=== PATIENT | female | born 1955 | race African-American/Black ===

== ENCOUNTER 2019-11-22 08:36 | Observation (INO) | payer MEDICARE, OTHER ==
[~2019-11-22 08:36] MED LIST: ACETAMINOPHEN 325 MG TABLET ONE; ACETAMINOPHEN 325 MG TABLET PO PRN; CEFAZOLIN SODIUM 2 GM in DEXTROSE 5%-WATER 100 ML IV PRN; CELECOXIB 200 MG CAPSULE ONE; CELECOXIB 200 MG CAPSULE PO PRN; GABAPENTIN 100 MG CAPSULE ONE; GABAPENTIN 100 MG CAPSULE PO PRN; LACTATED RINGERS 1000 ML IV PRN; ONDANSETRON HCL INJ/PF 4 MG/2 ML SDV IV PRN; ONDANSETRON HCL INJ/PF 4 MG/2 ML SDV ONE; OXYCODONE HCL SR 10 MG TABLET PO ONE; OXYCODONE HCL SR 10 MG TABLET PO PRN; RINGERS SOLUTION,LACTATED 1,000 ML IV PRN; SCOPOLAMINE HYDROBROMIDE 1.5 MG PATCH.TD72 ONE; SCOPOLAMINE HYDROBROMIDE 1.5 MG PATCH.TD72 TD PRN; TRAMADOL HCL 50 MG TABLET ONE; TRAMADOL HCL 50 MG TABLET PO PRN; TRANEXAMIC ACID INJ/PF 1,000 MG/10 ML SDV IV PRN; VANCOMYCIN HCL 1,000 MG in DEXTROSE 5%-WATER 250 ML IV PRN
[2019-11-22] MEDS ORDERED: VANCOMYCIN HCL INJ 1000 MG VIAL ONE (11:57)
[2019-11-22] MEDS ORDERED: KETOROLAC TROMETHAMINE INJ/PF 30 MG/1 ML SDV ONE (11:57)
[2019-11-22] MEDS ORDERED: BUPIVACAINE HCL 0.25 % INJ/PF (2.5 MG/1 ML) 30 ML VIAL ONE (11:57)
[2019-11-22] MEDS ORDERED: LIDOCAINE 1% INJ-PF (10 MG/ML) 30 ML SDV ONE (11:57)
[2019-11-22] MEDS ORDERED: BACITRACIN INJ 50,000 UNIT VIAL ONE (11:58)
[2019-11-22] MEDS ORDERED: GENTAMICIN SULFATE INJ 80 MG/2 ML VIAL ONE (11:58)
[2019-11-22] MEDS ORDERED: MIDAZOLAM 2 MG/2 ML INJ ONE (12:07)
[2019-11-22] MEDS ORDERED: PROPOFOL INJ 200 MG/20 ML VIAL IV ONE ×2 (12:07→14:08)
[2019-11-22] MEDS ORDERED: MORPHINE SULFATE 10 MG/ML INJ IV PRN ×2 (12:51→15:49)
[2019-11-22] MEDS ORDERED: DIPHENHYDRAMINE HCL 50 MG/ML VIAL IV PRN (12:51)
[2019-11-22] MEDS ORDERED: MEPERIDINE HCL/PF INJ 25 MG/1 ML DISP.SYRIN IV PRN (12:51)
[2019-11-22] MEDS ORDERED: PROMETHAZINE HCL INJ 25 MG/1 ML VIAL IV PRN ×2 (12:51)
[2019-11-22] MEDS ORDERED: FENTANYL CITRATE INJ/PF 100 MCG/2 ML AMPUL IV PRN ×3 (12:51)
[2019-11-22] MEDS ORDERED: LIDOCAINE 2% INJ (20 MG/ML) 20 ML MDV ONE (14:41)
[2019-11-22] MEDS ORDERED: LIDOCAINE 2%/EPINEPHRINE INJ 20 ML VIAL ONE (14:41)
[2019-11-22] MEDS ORDERED: ROPIVACAINE HCL 0.5% INJ/PF (5 MG/1 ML) 30 ML SDV ONE (14:41)
--- NOTE | 2019-11-22 15:06 | Operative Report ---
Operative Report DATE OF SURGERY: 11/22/19 PREOPERATIVE DIAGNOSIS: Severe primary right knee arthritis POSTOPERATIVE DIAGNOSIS: Severe primary right knee arthritis OPERATION: Right total knee arthroplasty SURGEON: ERIC JENKINS JR ANESTHESIA: Spinal COMPLICATIONS: None ESTIMATED BLOOD LOSS: 20 cc PROCEDURE: Components: Ricardo persona total knee: 6 PS femur, F x 10 tibia, and a 32 patella BRIEF HISTORY: 63year old male/female with severe degenerative arthritis of right knee, which has failed conservative treatment and has elected for a total knee arthroplasty. They had been having severe debilitating pain that was preventing her from performing daily activities including ambulating for short distances, getting in and out of there car, going up and down stairs, and overall decreasing their quality of life due to their avoidance of activity because of pain. That failed conservative management including [id number] pain medication such as Tylenol and ibuprofen. X-rays demonstrated severe ggyq-vq-tulz osteoarthritis with subchondral sclerosis osteophyte formation and joint space narrowing. Risks include but are not limited to bleeding, infection, anesthesia, , injury to nerve or vessel, pain, scar, leg length inequality, dislocation, future surgery, and blood clots. Patient read through the pre-op counseling form and signed and solicited for surgery on their right knee. OPERATIVE PROCEDURE: Patient was brought to the operating room on and underwent spinal anesthesia. After proper anesthesia was obtained, patient was positioned, padded, prepped, and draped in the usual sterile fashion on the operating room table. 2 grams of Ancef and 1 g of vancomycin were given. Appropriate time out was performed. Anterior incision and medial-parapatella approach was performed. Severe degenerative arthritis was noted. Osteophytes were removed from the femur and tibia, and the remainder of the ACL and PCL were removed. The proximal tibia was then prepared and cut perpendicular to the tibial shaft axis and measured to a F tibia. The distal femur was drilled, the canal was irrigated and the distal femoral guide was placed. The distal femur was cut to 5 degrees of varus. The knee was brought into extension and found to be slightly tight with the evaluation of the 10 block. We placed her back into flexion and cut 2 more millimeters. The tensor was placed in extension and the extension gap was balanced with releases until the goniometer on the tensor measured to 0. The patella AP aspect was measured to 25 mm and patella was cut parallel to the anterior patella surface. A 32 mm button was placed medially and superiorly as possible and the patella-button construct again measured 25 mm. The tensor was placed in flexion and the femur was sized to 6. The AP and for block was placed and anterior-posterior and chamfer cuts were made. Posterior osteophytes were removed and the was evaluated with a 10 block and found to be appropriate. A femoral trial was placed and then the femoral notch cuts were made. A trial baseplate was placed with a 10 mm polyethylene and taken through a range of motion. This was found to have excellent fit in both extension and flexion, no position of excessive ligamentous restraint or laxity, and good patellar tracking. The tibial baseplate was marked in position and subsequently pinned, drilled, and punched. Cement fixation places made on the femur and tibia, and pulsatile irrigation of the lili and soft tissue surfaces. The lili surfaces were cleaned and dried, and cementation of the femur, tibia, and patella. Periarticular injection with Marcaine and Toradol was performed. The knee was irrigated with antibiotic solution, betadine solution, and antibiotic solution. A gram of Vancomycin was placed intra-articularly. The extensor mechanism was closed with number 2 Stratofix, the subcutaneous tissue closed with 2-0 Vicryl and the skin closed with 3-0 running monocryl. A silver dressing was applied. All needle sponge and instrument counts were correct. Patient was awakened from sedation anesthesia and taken to recovery room in good condition. Eric Jenkins DO
[2019-11-22] MEDS: ATROPINE SULFATE INJ 1 MG/10 ML DISP.SYRIN IV ONE ×2 (15:10→15:12)
[2019-11-22] MEDS ORDERED: DEXAMETHASONE SOD PHOS INJ 10 MG/1 ML VIAL ONE (15:42)
[2019-11-22] MEDS ORDERED: TRANEXAMIC ACID INJ/PF 1,000 MG/10 ML SDV ONE (15:42)
[2019-11-22] MEDS ORDERED: OXYCODONE HCL IR 5 MG TABLET PO PRN ×2 (15:48→15:49)
[2019-11-22] MEDS ORDERED: TRAMADOL HCL 50 MG TABLET PO PRN (15:50)
[2019-11-22] MEDS ORDERED: PANTOPRAZOLE SODIUM 20 MG TABLET.DR PO PRN (15:53)
[2019-11-22] MEDS ORDERED: DIPHENHYDRAMINE HCL 25 MG CAPSULE PO PRN (15:56)
[2019-11-22] MEDS ORDERED: ZOLPIDEM TARTRATE 5 MG TABLET PO PRN (15:57)
[2019-11-22] MEDS ORDERED: DOCUSATE SODIUM 100 MG CAPSULE PO PRN (16:00)
[2019-11-22] MEDS ORDERED: NORMAL SALINE 1000 ML 1,000 ML IV PRN (16:01)
[2019-11-22] MEDS ORDERED: ONDANSETRON HCL 8 MG TABLET PO PRN (16:02)
--- NOTE | 2019-11-22 16:26 | RADIOLOGY REPORT (SQ) ---
EXAM DESCRIPTION: KNEE RIGHT 2 VIEWS COMPLETED DATE/TIME: 11/22/2019 4:03 pm REASON FOR STUDY: POST OP M17.11 UNILATERAL PRIMARY OSTEOARTHRITIS, RIGHT KNEE COMPARISON: 08/08/2019. NUMBER OF VIEWS: Two view(s). TECHNIQUE: Digital radiographic images of the right knee post-procedure. LIMITATIONS: None. FINDINGS: BONES: No worrisome or unexpected findings post-procedure. DEVICE: Total knee arthroplasty SOFT TISSUES: No worrisome findings. Expected postoperative soft tissue changes. IMPRESSION: SATISFACTORY POSTOPERATIVE RIGHT KNEE. TECHNICAL DOCUMENTATION: JOB ID: [id number] [employer]- All Rights Reserved Reading location - IP/workstation name: [email or web address]
[2019-11-22] MEDS ORDERED: TRAMADOL HCL 50 MG TABLET PO SCH (18:00)
--- NOTE | 2019-11-22 18:05 | PDOC CONSULTATION ---
Consultation Consult Date: 11/22/19 Attending physician:: KIRILL JENKINS JR Provider Consulted: JOSE PLATT Consult reason:: bradycardia History of Present Illness Patient complains of: bradycardia History of Present Illness: JASMINE RODRIGUEZ is a 63 year old female who has history of hypertension that appears to be controlled. She also has history of morbid obesity status post gastric sleeve surgery last year. She is not a smoker or drinker. She does not use illicit drugs. She has dyslipidemia and GERD as well. She says that she was tested for sleep apnea last year and was negative. Was admitted for right knee severe arthritis and underwent total right knee arthroplasty today. Postop she developed severe bradycardia rate in the high 20s. She received 2 doses of atropine. Apparently she received tramadol and oxycodone prior to the surgery. Plain heart rate is stable in the mid 50s and she is asymptomatic. Blood pressure can continued to be stable throughout postop time period. Past Medical History Cardiac Medical History: Reports: Hyperlipidema, Hypertension Denies: Atrial Fibrillation, Congestive Heart Failure, Coronary Artery Dise ase, Myocardial Infarction, Peripheral Vascular Disease, Heart Murmur Pulmonary Medical History: Denies: Asthma, Bronchitis, Chronic Obstructive Pulmonary Disease (COPD), Sl eep Apnea Neurological Medical History: Denies: Seizures Endocrine Medical History: Denies: Hyperthyroidism, Hypothyroidism Renal/ Medical History: Denies: End Stage Renal Disease GI Medical History: Reports: Gastroesophageal Reflux Disease Denies: Crohn's Disease, Hiatal Hernia Musculoskeltal Medical History: Reports: Arthritis Denies: Fibromyalgia Psychiatric Medical History: Denies: Bipolar Disorder, Depression, Post Traumatic Stress Disorder Hematology: Denies: Anemia, Sickle Cell Disease Past Surgical History Past Surgical History: Reports: Cholecystectomy, Gastric Bypass Surgery Denies: Amputation, Appendectomy, Section, Colostomy, Coronary Artery Bypass Graft, Herniorrhaphy, Hysterectomy, Mastectomy, Pacemaker, Tonsillectomy, Tubal Ligation Social History Smoking Status: Never Smoker Hx Recreational Drug Use: No Hx Prescription Drug Abuse: No - Advance Directive Resuscitation Status: Full Code Family History Family History: COPD Parental Family History Reviewed: Yes Children Family History Reviewed: Yes Sibling(s) Family History Reviewed.: Yes Medication/Allergy Home Medications: Calcium Carbonate [Caltrate 600 mg Tablet] 600 mg PO DAILY 11/07/19 Diclofenac Sodium [Voltaren 50 mg Tablet.dr] 50 mg PO DAILY 11/07/19 Hydrochlorothiazide [Hydrodiuril 25 mg Tablet] 25 mg PO DAILY 11/07/19 Multivitamin [Multiple Vitamins] 1 tab PO DAILY 11/07/19 Omeprazole 40 mg PO DAILY 11/07/19 Polyethylene Glycol 3350 [Miralax Powder 17 gm/Packet] 17 gm PO DAILY 11/07/19 Simvastatin 40 mg PO QHS 11/07/19 Tramadol HCl [Ultram 50 mg Tablet] 50 mg PO BID 11/07/19 Allergies/Adverse Reactions: No Known Allergies Allergy (Verified 11/22/19 09:31) Review of Systems All systems: reviewed and no additional remarkable complaints except as stated Physical Exam Vital Signs: Temp Pulse Resp BP Pulse Ox 97.9 F 49 L 8 L 129/65 H 93 11/22/19 17:00 11/22/19 17:00 11/22/19 17:00 11/22/19 17:00 11/22/19 17:00 Intake & Output 11/21/19 11/22/19 11/23/19 06:59 06:59 06:59 Intake Total 4200 Output Total 3025 Balance 1175 Weight 211 lb 0.07 oz Exam: Patient is no acute distress Alert oriented to time place person No anxiety or depression Head: atraumatic normocephalic Pupils: are equal reactive Neck: is supple and trachea is central no lymphadenopathy No pharyngeal erythema or exudates Heart: Regular rate and rhythm, no peripheral edema Lungs: clear to auscul, no respiratory distress Abdomen: nontender nondistended Neurological exam: unremarkable Musculoskeletal: Right knee is postop covered with dressing that is dry and clean No suicidal or homicidal ideation Results Laboratory Results: 11/22/19 09:20 11/22/19 09:20 Potassium 3.8 Impressions: Knee X-Ray 11/22/19 00:00 IMPRESSION: SATISFACTORY POSTOPERATIVE RIGHT KNEE. Assessment and Plan - Diagnosis (1) Bradycardia Is this a current diagnosis for this admission?: Yes Plan: Most likely from anesthesia effects. Observe on telemetry. Currently rate in the high 50s and she is asymptomatic. Will check TSH and electrolytes and get echocardiogram. (2) Hypertension Is this a current diagnosis for this admission?: Yes Plan: resume HCTZ (3) Arthritis of right knee Is this a current diagnosis for this admission?: Yes Plan: Status post right total knee arthroplasty (4) Dyslipidemia Is this a current diagnosis for this admission?: Yes Plan: Continue simvastatin
--- NOTE | 2019-11-22 18:22 | EKG REPORT ---
SEVERITY:- NORMAL ECG - SINUS RHYTHM : Confirmed by: Truman Perry MD 22-Nov-2019 18:21:58
[2019-11-22 19:21] LABS: ANION GAP 6 (5-19); BLOOD UREA NITROGEN 20 mg/dL (7-20); CALCIUM 9.7 mg/dL (8.4-10.2); CARBON DIOXIDE 33 mmol/L (22-30); CHLORIDE 99 mmol/L (98-107); GLUCOSE 95 mg/dL (75-110); POTASSIUM 4.5 mmol/L (3.6-5.0)
[2019-11-22] MEDS: GABAPENTIN 100 MG CAPSULE PO SCH (20:24)
[2019-11-22] MEDS: ACETAMINOPHEN 325 MG TABLET PO SCH (21:51)
[2019-11-22] MEDS: CEFAZOLIN SODIUM 2 GM in DEXTROSE 5%-WATER 100 ML IV SCH (21:52)
[2019-11-22] MEDS: KETOROLAC TROMETHAMINE INJ/PF 30 MG/1 ML SDV IV SCH (21:52)
[2019-11-22] MEDS ORDERED: SIMVASTATIN 40 MG TABLET PO SCH (22:00)
--- NOTE | 2019-11-23 05:38 | PDOC PROGRESS REPORT ---
Subjective Progress Note for:: 11/23/19 Subjective:: The patient is doing well this AM. Pain is present but not out of proportion and well controlled on their current medications. There are no new symptoms or overnight events. Overall they are felling well without complaints. They deny chest pain, shortness of breath or motor or sensory loss. Reason For Visit: M17.11 UNILATERAL PRIMARY OSTEOARTHRITIS, RIGHT KN Physical Exam Vital Signs: Temp Pulse Resp BP Pulse Ox 98.3 F 54 L 16 116/73 97 11/23/19 00:00 11/23/19 02:00 11/23/19 00:00 11/23/19 00:00 11/23/19 00:00 Intake & Output 11/21/19 11/22/19 11/23/19 06:59 06:59 06:59 Intake Total 4800 Output Total 3025 Balance 1775 Weight 96.3 kg Physical Exam: General appearance: PRESENT: no acute distress, cooperative, well-nourished Head exam: PRESENT: atraumatic, normocephalic Eye exam: PRESENT: EOMI Ear exam: PRESENT: normal external ear exam Mouth exam: PRESENT: neck supple Neck exam: ABSENT: tracheal deviation Respiratory exam: PRESENT: symmetrical, unlabored. ABSENT: accessory muscle use, wheezes Pulses: PRESENT: normal radial pulses, normal dorsalis pedis pulse Vascular exam: PRESENT: normal capillary refill GI/Abdominal exam: ABSENT: distended, firm Extremities exam: PRESENT: full ROM of bilateral shoulders, elbows wrists, knees, hips and ankles without pain Musculoskeletal exam: PRESENT: full ROM, normal inspection of all 4 extremities aside from that noted below. Neurological exam: PRESENT: alert, awake, oriented to person, oriented to place, oriented to time Psychiatric exam: PRESENT: appropriate affect. ABSENT: agitated Focused psych exam: ABSENT: catatonic Skin exam: PRESENT: intact. ABSENT: dry All as above aside from that noted in the HPI and the following: Right lower extremity -Pulses 2+ distally -Compartments soft -Wound clean dry and intact no drainage, appropriate appearance for postop day 1 -Sensation grossly intact to L3-4-5 S1 -Motor grossly intact to EHL TA gastroc and quad - Able to perform quad extension and elevate heel off of bed. Results Laboratory Results: 11/22/19 18:41 11/22/19 11/22/19 11/22/19 09:20 18:41 18:41 Sodium 138.2 Potassium 3.8 4.5 Chloride 99 Carbon Dioxide 33 H Anion Gap 6 BUN 20 Creatinine 0.91 Est GFR ( Amer) > 60 Glucose 95 Calcium 9.7 Magnesium 2.1 TSH 2.09 Impressions: Knee X-Ray 11/22/19 00:00 IMPRESSION: SATISFACTORY POSTOPERATIVE RIGHT KNEE. Assessment & Plan - Diagnosis (1) Status post total right knee replacement Is this a current diagnosis for this admission?: Yes Plan: - 2 doses of Ancef postoperatively q 8 hours to complete 24 hours perioperatively -Weightbearing as tolerated, no precautions, encourage out of bed CESAR for ADL training - PT/OT - Keep knee extended in bed, rolled towel under the ankle to obtain full extension -aspirin 325 daily for DVT prophylaxis for 6 weeks -multimodal pain management to avoid excessive narcotics, including gabapentin, tramadol, Toradol, acetaminophen. -Dressing should not be removed for 7 to 10 days until seen in the office -May shower with the dressing intact, if it starts to come off she should not g et the incision wet. -I would like to follow the patient my office within the next 7 to 10 days at [address] [place] [address]. in [place] office #: [phone] -The patient is okay for discharge today, pending approval by the hospitalist service and any potential studies that they wish to have prior to clearing her for safe discharge home. Please contact me with any further questions. - Time Time Spent with patient: Less than 15 minutes
[2019-11-23] MEDS: ACETAMINOPHEN 325 MG TABLET PO SCH ×2 (05:41→13:13)
[2019-11-23] MEDS: KETOROLAC TROMETHAMINE INJ/PF 30 MG/1 ML SDV IV SCH ×2 (05:41→13:15)
[2019-11-23] MEDS: CEFAZOLIN SODIUM 2 GM in DEXTROSE 5%-WATER 100 ML IV SCH (05:41)
[2019-11-23] MEDS: GABAPENTIN 100 MG CAPSULE PO SCH (09:10)
[2019-11-23] MEDS ORDERED: MULTIVITAMIN TABLET PO SCH (10:00)
[2019-11-23] MEDS ORDERED: CELECOXIB 200 MG CAPSULE PO SCH (10:00)
[2019-11-23] MEDS ORDERED: ASPIRIN 325 MG TABLET PO SCH (10:00)
[2019-11-23] MEDS ORDERED: DICLOFENAC SODIUM 50 MG PO SCH (10:00)
[2019-11-23] MEDS ORDERED: HYDROCHLOROTHIAZIDE 25 MG TABLET PO SCH (10:00)
[2019-11-23] MEDS ORDERED: CALCIUM CARBONATE 600 MG PO SCH (10:00)
[2019-11-23] MEDS ORDERED: CALCIUM CARBONATE 500 MG TABLET PO SCH (10:00)
[2019-11-23] MEDS ORDERED: POLYETHYLENE GLYCOL 3350 POWDER 17 GM/1 PACKET PO SCH ×2 (10:00)
[2019-11-23] MEDS ORDERED: PANTOPRAZOLE SODIUM 40 MG TABLET.DR PO SCH (10:00)
[2019-11-23 10:47] VITALS: BP 124/83
--- NOTE | 2019-11-23 12:31 | PDOC PROGRESS REPORT ---
Subjective Progress Note for:: 11/23/19 Subjective:: Patient was seen and examined. She is doing very well. Tolerating diet. Heart rate significantly improved. TSH normal. Echocardiogram pending. Reason For Visit: RIGHT TOTAL KNEE ARTHROPLASTY Physical Exam Vital Signs: Temp Pulse Resp BP Pulse Ox 98.9 F 56 L 12 124/83 95 11/23/19 08:00 11/23/19 08:00 11/23/19 08:00 11/23/19 08:00 11/23/19 08:00 Intake & Output 11/22/19 11/23/19 11/24/19 06:59 06:59 06:59 Intake Total 4900 Output Total 3025 Balance 1875 Weight 212 lb 4.882 oz Exam: Patient is no acute distress Alert oriented to time place person No anxiety or depression Head: atraumatic normocephalic Pupils: are equal reactive Neck: is supple and trachea is central no lymphadenopathy No pharyngeal erythema or exudates Heart: Regular rate and rhythm, no peripheral edema Lungs: clear to auscul, no respiratory distress Abdomen: nontender nondistended Neurological exam: unremarkable Musculoskeletal: Right knee is postop covered with dressing that is dry and clean No suicidal or homicidal ideation Results Laboratory Results: 11/22/19 18:41 11/22/19 11/22/19 18:41 18:41 Sodium 138.2 Potassium 4.5 Chloride 99 Carbon Dioxide 33 H Anion Gap 6 BUN 20 Creatinine 0.91 Est GFR ( Amer) > 60 Glucose 95 Calcium 9.7 Magnesium 2.1 TSH 2.09 Impressions: Knee X-Ray 11/22/19 00:00 IMPRESSION: SATISFACTORY POSTOPERATIVE RIGHT KNEE. Assessment and Plan - Diagnosis (1) Bradycardia Is this a current diagnosis for this admission?: Yes Plan: Most likely from anesthesia effects. Has been sinus on telemetry. Normal TSH and electrolytes. Can follow-up results of echocardiogram outpatient with his PCP. (2) Hypertension Is this a current diagnosis for this admission?: Yes Plan: Continue HCTZ (3) Arthritis of right knee Is this a current diagnosis for this admission?: Yes Plan: Status post right total knee arthroplasty (4) Dyslipidemia Is this a current diagnosis for this admission?: Yes Plan: Continue simvastatin - Plan Summary Summary: Stable for discharge
== END 2019-11-23 14:33 | disposition home or self-care (01) ==
LOC: OROUT 08:36 → 4S 18:14 → OROUT 18:47 → 4S 18:49
PROVIDERS: ADMIT Orthopaedic Surgery; ATTEND Orthopaedic Surgery
DX: M17.11 Unilateral primary osteoarthritis, right knee (principal); E78.5 Hyperlipidemia, unspecified; K21.9 Gastro-esophageal reflux disease without esophagitis; Z98.84 Bariatric surgery status; I97.89 Other postprocedural complications and disorders of the circulatory system, not elsewhere classified; R00.1 Bradycardia, unspecified; Y83.8 Other surgical procedures as the cause of abnormal reaction of the patient, or of later complication, without mention of misadventure at the time of the procedure; I10 Essential (primary) hypertension; Z79.899 Other long term (current) drug therapy
CPT/HCPCS: 27447; C1776; 01402; 36415; 80048; 83735; 84132; 84443; 93005; 93010; G0378; J0461; J0690; J1100; J1580; J1885; J2250; J2405; J2704; J2795; J3370; J3490; J7030; J7060